=== PATIENT | female | born 1935 | race Caucasian/White ===

== ENCOUNTER 2019-05-02 04:12 | Emergency (ER) | payer OTHER, MEDICARE ==
[~2019-05-02] VITALS: Ht 170.2 cm; Wt 81.6 kg
[2019-05-02 04:12] VITALS: BP_SYST 164
[2019-05-02] MEDS ORDERED: traMADol HCL HCL 50 MG TABLET (ULTRAM) PO ONE (05:00)
[2019-05-02] MEDS ORDERED: TRAM50TA2 PO (05:07)
[2019-05-02] MEDS ORDERED: LISI-209 PO (05:07)
[2019-05-02] MEDS ORDERED: LEVO75TA7 PO (05:07)
[2019-05-02] MEDS ORDERED: OMEP20CA11 PO (05:08)
[2019-05-02] MEDS ORDERED: NOR10 PO (05:13)
[2019-05-02] MEDS ORDERED: KETOROLAC TROMETHAMINE 30 MG VIAL IM ONE (05:45)
[2019-05-02 06:42] VITALS: BP_SYST 150
== END 2019-05-02 06:42 | disposition home or self-care (01) ==
LOC: SED 04:12
DX: M19.012 Primary osteoarthritis, left shoulder (principal); M19.011 Primary osteoarthritis, right shoulder; I10 Essential (primary) hypertension; Z88.6 Allergy status to analgesic agent; Z79.899 Other long term (current) drug therapy
CPT/HCPCS: 73030; 96372; 99283; J1885